=== PATIENT | female | born 1990 | race African-American/Black ===

== ENCOUNTER 2021-03-13 21:53 | Emergency (ER) | payer MEDICAID ==
[~2021-03-13] VITALS: Ht 160 cm; Wt 113.0 kg
[2021-03-13 22:05] VITALS: BP 144/98
== END 2021-03-14 02:15 | disposition left against medical advice (07) ==
LOC: ER 21:53
DX: Z53.21 Procedure and treatment not carried out due to patient leaving prior to being seen by health care provider (principal)